=== PATIENT | male | born 1965 | race Caucasian/White ===

== ENCOUNTER 2024-07-06 13:21 | Inpatient (IN) | payer MEDICARE, MEDICAID ==
[~2024-07-06] VITALS: Ht 172.7 cm; Wt 83.1 kg
[2024-07-06] MEDS ORDERED: Glucagon Hydrochloride 1 MG SYR IV ONE (13:40)
[2024-07-06 13:42] VITALS: BP 86/40
[2024-07-06 14:05] LABS: BASO % 0.1 % (0.0-1.0); EOS % 0.1 % (1.0-4.0); HEMATOCRIT 37.8 % (42.0-52.0); MEAN CELL VOLUME 80.4 fl (80.0-94.0); MEAN CORPUSCULAR HGB 27.2 pg (27.0-31.0); MEAN CORPUSCULAR HGB CONC 33.9 g/dl (33.0-37.0); MEAN PLATELET VOLUME 10.5 fl (9.6-12.3); MONO # 1.1 10*3/uL (0.1-1.0); MONO % 10.8 % (3.0-9.0); NEUT % 79.7 % (47.0-73.0); PLATELET COUNT AUTOMATED 251 10*3/uL (130-400); RED CELL DISTRI WIDTH 16.1 % (0-14.5); WHITE BLOOD COUNT 10.1 10*3/uL (4.8-10.8)
[2024-07-06 14:13] LABS: BILIRUBIN Negative (Negative); BLOOD Negative (Negative); CLARITY Clear (Clear); COLOR Yellow (Yellow); GLUCOSE Negative (Negative); KETONE Negative (Negative); LEUKO ESTERASE Negative (Negative); NITRITE Negative (Negative); SPECIFIC GRAVITY 1.015 (1.001-1.030); UROBILINOGEN 0.2 E.U./dl (0.0-1.0)
[2024-07-06 14:24] LABS: BUN 97 mg/dl (9-23); CHLORIDE 90 mmol/L (98-107); POTASSIUM 2.5 mmol/L (3.4-5.1)
[2024-07-06 14:37] LABS: ETHYL ALCOHOL < 3.0 mg/dl (<3)
[2024-07-06 14:39] LABS: BACTERIA TRACE; EPITHELIAL CELLS 0-2; FINE GRANULAR CAST 0-2; RBC 0-2 rbc/hpf (0-2); WBC 0-2 wbc/hpf (0-5)
[2024-07-06 14:45] LABS: URINE AMPHETAMINES Negative (1000ng/ml); URINE BARBITURATES Negative (200ng/ml); URINE BENZODIAZEPINES Negative (200ng/ml); URINE CANNABINOIDS (THC) Negative (50ng/ml); URINE COCAINE Negative (300ng/ml); URINE METHADONE Negative (300ng/ml); URINE OPIATES Negative (300ng/ml); URINE PHENCYCLIDINE Negative (25ng/ml)
[2024-07-06] MEDS ORDERED: ASPIRIN ADULT L81 M1 PO (14:57)
[2024-07-06] MEDS ORDERED: ALDACTONE25 MG PO (14:57)
[2024-07-06] MEDS ORDERED: AUVELITY ER 451 EACH PO (14:58)
[2024-07-06] MEDS ORDERED: ATORVASTATIN CA20 M1 PO (14:58)
[2024-07-06] MEDS ORDERED: BUMETANIDE1 MG PO (14:58)
[2024-07-06] MEDS ORDERED: ENTRESTO 97 MG1 EACH PO (14:59)
[2024-07-06] MEDS ORDERED: METFORMIN HYDR500 MG PO (14:59)
[2024-07-06] MEDS ORDERED: METOPROLOL SUCC50 M1 PO (15:00)
[2024-07-06] MEDS ORDERED: OMEPRAZOLE MAGN20 MG PO (15:00)
[2024-07-06] MEDS ORDERED: ELIQUIS2.5 M1 PO (15:00)
[2024-07-06] MEDS ORDERED: SODIUM CHLORIDE 0.9% 1,000 ML IV ONE ×2 (15:35→16:35)
[2024-07-06 15:40] VITALS: BP 96/45
[2024-07-06] MEDS ORDERED: ACETAMINOPHEN 650 MG SUPP R PRN (16:20)
[2024-07-06] MEDS ORDERED: Magnesium Hydroxide 30 ML UDC PO PRN (16:20)
[2024-07-06] MEDS ORDERED: ACETAMINOPHEN 325 MG TAB PO PRN (16:20)
[2024-07-06] MEDS ORDERED: POTASSIUM CHLORIDE 20 MEQ TAB PO ONE (16:35)
[2024-07-06] MEDS ORDERED: DEXTROSE 10 % IN WATER 250 ML IV PRN (17:50)
[2024-07-06 18:00] VITALS: BP 96/65
[2024-07-06 19:58] VITALS: BP 83/57
[2024-07-06] MEDS ORDERED: APIXABAN 5 MG TAB PO SCH (22:00)
[2024-07-06] MEDS ORDERED: TEMAZEPAM 15 MG CAP PO PRN (22:00)
[2024-07-06] MEDS ORDERED: APIXABAN 2.5 MG TABLET PO SCH (22:00)
[2024-07-06] MEDS ORDERED: INSULIN LISPRO 1 UNIT/0.01 ML SQ SCH (22:00)
[2024-07-07] VITALS (7 sets, daily range): BP systolic 74–95; BP diastolic 40–66
[2024-07-07] MEDS ORDERED: Pantoprazole Sodium 40 MG TAB PO SCH (06:00)
[2024-07-07 06:13] LABS: BASO % 0.1 % (0.0-1.0); EOS % 0.2 % (1.0-4.0); HEMATOCRIT 37.4 % (42.0-52.0); MEAN CELL VOLUME 80.4 fl (80.0-94.0); MEAN CORPUSCULAR HGB 27.3 pg (27.0-31.0); MEAN PLATELET VOLUME 10.8 fl (9.6-12.3); MONO % 11.8 % (3.0-9.0); NEUT # 6.9 10*3/uL (2.3-7.9); PLATELET COUNT AUTOMATED 283 10*3/uL (130-400); RED BLOOD COUNT 4.65 10*6/uL (4.50-5.90); RED CELL DISTRI WIDTH 16.2 % (0-14.5); WHITE BLOOD COUNT 8.9 10*3/uL (4.8-10.8)
[2024-07-07 06:14] LABS: FREE T4 1.05 ng/dl (0.89-1.76); POTASSIUM 2.8 mmol/L (3.4-5.1)
[2024-07-07] MEDS ORDERED: POTASSIUM CHLORIDE 20 MEQ TAB PO ONE (06:40)
[2024-07-07] MEDS ORDERED: POTASSIUM PHOS IN 0.9 % NACL 250 ML IV ONE (06:55)
[2024-07-07] MEDS ORDERED: Phosphorus/Potassium 1.45 GM PACKET PO SCH (07:30)
[2024-07-07 08:11] LABS: VITAMIN D, 25-HYDROXY 6.5 ng/mL (30-100)
[2024-07-07] MEDS ORDERED: Clopidogrel Hydrogen Sulfate 75 MG TAB PO SCH (10:00)
[2024-07-07] MEDS ORDERED: MED. FROM HOME 1 EACH EA PO SCH (11:00)
[2024-07-07 11:49] LABS: POTASSIUM 3.4 mmol/L (3.4-5.1)
[2024-07-07] MEDS ORDERED: SODIUM CHLORIDE 0.9% 500 ML IV ONE (12:15)
[2024-07-07] MEDS ORDERED: Midodrine Hydrochloride 5 MG TAB PO SCH (17:50)
[2024-07-07] MEDS ORDERED: Mirtazapine 15 MG TAB PO SCH (21:00)
[2024-07-07] MEDS ORDERED: ARIPiprazole 5 MG TAB PO SCH (22:00)
[2024-07-08] VITALS: BP 90/50
[2024-07-08 05:24] LABS: CHLORIDE 105 mmol/L (98-107); POTASSIUM 3.1 mmol/L (3.4-5.1)
[2024-07-08 05:29] LABS: BUN 48 mg/dl (9-23)
[2024-07-08 06:21] LABS: BASO % 0.2 % (0.0-1.0); EOS # 0.1 10*3/uL (0.0-0.4); EOS % 0.8 % (1.0-4.0); HEMATOCRIT 35.7 % (42.0-52.0); MEAN CELL VOLUME 81.3 fl (80.0-94.0); MEAN CORPUSCULAR HGB 27.1 pg (27.0-31.0); MEAN CORPUSCULAR HGB CONC 33.3 g/dl (33.0-37.0); MEAN PLATELET VOLUME 10.1 fl (9.6-12.3); MONO # 1.2 10*3/uL (0.1-1.0); MONO % 10.8 % (3.0-9.0); NEUT # 8.3 10*3/uL (2.3-7.9); NEUT % 77.4 % (47.0-73.0); PLATELET COUNT AUTOMATED 299 10*3/uL (130-400); RED BLOOD COUNT 4.39 10*6/uL (4.50-5.90); RED CELL DISTRI WIDTH 16.6 % (0-14.5); WHITE BLOOD COUNT 10.7 10*3/uL (4.8-10.8)
[2024-07-08] MEDS ORDERED: POTASSIUM CHLORIDE 20 MEQ TAB PO ONE (06:55)
[2024-07-08 08:00] VITALS: BP 111/78
[2024-07-08] MEDS ORDERED: ATORVASTATIN CALCIUM 20 MG TAB PO SCH (10:00)
[2024-07-08 12:00] VITALS: BP 102/82
[2024-07-08] MEDS ORDERED: NYSTATIN 15 GM BOT T SCH (13:05)
[2024-07-08] MEDS ORDERED: REMERON15 M2 PO (14:16)
[2024-07-08] MEDS ORDERED: RESTORIL15 MG PO (14:16)
[2024-07-08 16:00] VITALS: BP 100/74
[2024-07-08] MEDS ORDERED: Midodrine Hydrochloride 5 MG TAB PO SCH (16:00)
[2024-07-08 20:00] VITALS: BP 107/63
[2024-07-08] MEDS ORDERED: METOPROLOL SUCCINATE XR 25 MG TAB PO SCH (22:00)
[2024-07-08] MEDS ORDERED: Loperamide Hydrochloride 2 MG CAP PO ONE (22:20)
[2024-07-09] VITALS: BP 105/76
[2024-07-09 06:09] LABS: BASO % 0.3 % (0.0-1.0); EOS # 0.1 10*3/uL (0.0-0.4); EOS % 0.6 % (1.0-4.0); HEMATOCRIT 36.6 % (42.0-52.0); MEAN CELL VOLUME 82.1 fl (80.0-94.0); MEAN CORPUSCULAR HGB 26.9 pg (27.0-31.0); MEAN CORPUSCULAR HGB CONC 32.8 g/dl (33.0-37.0); MEAN PLATELET VOLUME 9.9 fl (9.6-12.3); MONO # 1.4 10*3/uL (0.1-1.0); MONO % 10.2 % (3.0-9.0); NEUT # 10.5 10*3/uL (2.3-7.9); NEUT % 77.5 % (47.0-73.0); PLATELET COUNT AUTOMATED 322 10*3/uL (130-400); RED BLOOD COUNT 4.46 10*6/uL (4.50-5.90); RED CELL DISTRI WIDTH 16.8 % (0-14.5); WHITE BLOOD COUNT 13.6 10*3/uL (4.8-10.8)
[2024-07-09 06:51] LABS: CHLORIDE 107 mmol/L (98-107); POTASSIUM 3.5 mmol/L (3.4-5.1)
[2024-07-09 07:05] LABS: BUN 25 mg/dl (9-23)
[2024-07-09 08:00] VITALS: BP 94/70
[2024-07-09 12:00] VITALS: BP 104/68
[2024-07-09] MEDS ORDERED: hydrOXYzine pamoate 25 MG CAP PO ONE (14:50)
[2024-07-09] MEDS ORDERED: Nicotine 21 MG PATCH T SCH (15:05)
[2024-07-09 16:00] VITALS: BP 105/69; BP 90/72
[2024-07-09] MEDS ORDERED: MIDODRINE HCL5 M1 PO (16:39)
[2024-07-09] MEDS ORDERED: CLOPIDOGREL75 MG PO (16:39)
[2024-07-09] MEDS ORDERED: JARDIANCE10 MG PO (16:39)
[2024-07-09] MEDS ORDERED: METOPROLOL SUCC25 M2 PO (16:39)
[2024-07-09] MEDS ORDERED: ELIQUIS5 M1 PO (16:39)
[2024-07-09] MEDS ORDERED: ARIPIPRAZOLE5 MG PO (16:40)
[2024-07-09 20:00] VITALS: BP 116/64
[2024-07-10] MEDS ORDERED: EMPAGLIFLOZIN 10 MG TABLET PO SCH (10:00)
== END 2024-07-09 21:06 | DRG 917 ==
LOC: ED 13:21 → EDHOLD 16:15 → 3N 16:15 → ICCU 16:15 → 3N 07-09 20:40 → ICCU 07-09 20:49
PROVIDERS: Emergency Medicine; Student in an Organized Health Care Education/Training Program; ADMIT Internal Medicine; ATTEND Internal Medicine
DX: T45.0X2A Poisoning by antiallergic and antiemetic drugs, intentional self-harm, initial encounter (principal); E43 Unspecified severe protein-calorie malnutrition; G93.41 Metabolic encephalopathy; N17.0 Acute kidney failure with tubular necrosis; I50.23 Acute on chronic systolic (congestive) heart failure; I21.A1 Myocardial infarction type 2; E87.1 Hypo-osmolality and hyponatremia; I95.9 Hypotension, unspecified; E87.6 Hypokalemia; D64.9 Anemia, unspecified; E87.8 Other disorders of electrolyte and fluid balance, not elsewhere classified; E11.65 Type 2 diabetes mellitus with hyperglycemia; I11.0 Hypertensive heart disease with heart failure; E78.5 Hyperlipidemia, unspecified; F32.9 Major depressive disorder, single episode, unspecified; G40.909 Epilepsy, unspecified, not intractable, without status epilepticus; I25.10 Atherosclerotic heart disease of native coronary artery without angina pectoris; I25.5 Ischemic cardiomyopathy; Z95.5 Presence of coronary angioplasty implant and graft; Z20.822 Contact with and (suspected) exposure to COVID-19; Z95.0 Presence of cardiac pacemaker; Z81.8 Family history of other mental and behavioral disorders; Z82.49 Family history of ischemic heart disease and other diseases of the circulatory system; Z86.73 Personal history of transient ischemic attack (TIA), and cerebral infarction without residual deficits; Z88.0 Allergy status to penicillin; Z79.82 Long term (current) use of aspirin; Z79.899 Other long term (current) drug therapy; Z68.28 Body mass index [BMI] 28.0-28.9, adult; Y92.89 Other specified places as the place of occurrence of the external cause

== ENCOUNTER 2024-07-09 17:15 | Inpatient (IN) | payer MEDICARE, MEDICAID ==
[~2024-07-09] VITALS: Ht 170.1 cm; Wt 83.0 kg
[~2024-07-09 17:15] MED LIST: ALDACTONE25 MG PO; ARIPIPRAZOLE5 MG PO; ASPIRIN ADULT L81 M1 PO; ATORVASTATIN CA20 M1 PO; AUVELITY ER 451 EACH PO; BUMETANIDE1 MG PO; CLOPIDOGREL75 MG PO; ELIQUIS2.5 M1 PO; ELIQUIS5 M1 PO; ENTRESTO 97 MG1 EACH PO; JARDIANCE10 MG PO; METFORMIN HYDR500 MG PO; METOPROLOL SUCC25 M2 PO; METOPROLOL SUCC50 M1 PO; MIDODRINE HCL5 M1 PO; OMEPRAZOLE MAGN20 MG PO; REMERON15 M2 PO; RESTORIL15 MG PO
[2024-07-09 20:45] VITALS: BP 114/88
[2024-07-09] MEDS ORDERED: MG-AL HYDROXIDE/SIMETICONE 30 ML UDC PO PRN (23:00)
[2024-07-09] MEDS ORDERED: ACETAMINOPHEN 325 MG TAB PO PRN (23:00)
[2024-07-09] MEDS ORDERED: Magnesium Hydroxide 30 ML UDC PO PRN (23:00)
[2024-07-09] MEDS ORDERED: Ziprasidone Mesylate 20 MG VIAL IM PRN (23:05)
[2024-07-09] MEDS ORDERED: LORazepam 1 MG TAB PO PRN (23:05)
[2024-07-09] MEDS ORDERED: LORazepam 2 MG/ML VIAL IM PRN (23:05)
[2024-07-10 06:45] LABS: BASO % 0.3 % (0.0-1.0); EOS % 0.4 % (1.0-4.0); HEMATOCRIT 34.6 % (42.0-52.0); MEAN CELL VOLUME 82.6 fl (80.0-94.0); MEAN CORPUSCULAR HGB 26.7 pg (27.0-31.0); MEAN CORPUSCULAR HGB CONC 32.4 g/dl (33.0-37.0); MEAN PLATELET VOLUME 9.8 fl (9.6-12.3); MONO # 1.1 10*3/uL (0.1-1.0); MONO % 9.8 % (3.0-9.0); NEUT # 8.6 10*3/uL (2.3-7.9); NEUT % 78.3 % (47.0-73.0); PLATELET COUNT AUTOMATED 312 10*3/uL (130-400); RED BLOOD COUNT 4.19 10*6/uL (4.50-5.90); RED CELL DISTRI WIDTH 17.3 % (0-14.5)
[2024-07-10 06:47] LABS: ALKALINE PHOSPHATASE 71 U/L (46-116); BUN 21 mg/dl (9-23); CHLORIDE 107 mmol/L (98-107); CHOLESTEROL 94 mg/dL (<200); LDL CHOLESTEROL 46 mg/dL (9-159); POTASSIUM 3.6 mmol/L (3.4-5.1); SGPT/ALT 16 U/L (5-49); TOTAL PROTEIN 6.2 gm/dL (6.0-8.0); TRIGLYCERIDES 102 mg/dl (<150)
[2024-07-10] MEDS ORDERED: Midodrine Hydrochloride 5 MG TAB PO SCH (08:00)
[2024-07-10 08:09] VITALS: BP 101/78
[2024-07-10] MEDS ORDERED: CALCIUM (TUMS) 500MG PO SCH (09:00)
[2024-07-10] MEDS ORDERED: Menthol/Zinc Oxide 4 GM THIN T SCH (09:00)
[2024-07-10] MEDS ORDERED: OMEPRAZOLE 20 MG CAP PO SCH (10:00)
[2024-07-10] MEDS ORDERED: ASPIRIN, CHEWABLE 81 MG TAB PO SCH (10:00)
[2024-07-10] MEDS ORDERED: Clopidogrel Hydrogen Sulfate 75 MG TAB PO SCH (10:00)
[2024-07-10] MEDS ORDERED: EMPAGLIFLOZIN 10 MG TABLET PO SCH (10:00)
[2024-07-10] MEDS ORDERED: METOPROLOL SUCCINATE XR 25 MG TAB PO SCH (10:00)
[2024-07-10] MEDS ORDERED: Nicotine 21 MG PATCH T SCH (10:00)
[2024-07-10] MEDS ORDERED: BUMETANIDE 1 MG TAB PO SCH (10:00)
[2024-07-10] MEDS ORDERED: APIXABAN 5 MG TAB PO SCH ×2 (10:00)
[2024-07-10] MEDS ORDERED: SACUBITRIL/VALSARTAN 97 MG-103 MG TABLET PO SCH (10:00)
[2024-07-10] MEDS ORDERED: LORazepam 0.5 MG TAB PO SCH (13:00)
[2024-07-10] MEDS ORDERED: Water, Sterile 10 ML VIAL ONE (17:45)
[2024-07-10 20:00] VITALS: BP 103/51
[2024-07-10] MEDS ORDERED: Mirtazapine 15 MG TAB PO SCH (21:00)
[2024-07-10] MEDS ORDERED: ARIPiprazole 5 MG TAB PO SCH (21:00)
[2024-07-10] MEDS ORDERED: ATORVASTATIN CALCIUM 20 MG TAB PO SCH (22:00)
[2024-07-10] MEDS ORDERED: Albuterol Sulf/Ipratropium 3 ML VIAL NEB SCH (23:25)
[2024-07-11 06:48] LABS: BUN 22 mg/dl (9-23); CHLORIDE 108 mmol/L (98-107); POTASSIUM 4.1 mmol/L (3.4-5.1)
[2024-07-11 08:00] VITALS: BP 99/65
[2024-07-11] MEDS ORDERED: MED. FROM HOME 1 EACH EA PO SCH ×4 (09:00→21:00)
[2024-07-11] MEDS ORDERED: Cholecalciferol 5,000 IU CAP (125 MCG) PO SCH (09:00)
[2024-07-11 20:00] VITALS: BP 117/67
[2024-07-12 07:40] VITALS: BP 102/63
[2024-07-12 20:00] VITALS: BP 126/88
[2024-07-13 07:42] VITALS: BP 91/58
[2024-07-13 07:58] VITALS: BP 98/60
[2024-07-13] MEDS ORDERED: RAMELTEON 8 MG TAB PO PRN (08:45)
[2024-07-13] MEDS ORDERED: Albuterol Sulf/Ipratropium 3 ML VIAL NEB PRN (08:55)
[2024-07-13] MEDS ORDERED: Rivastigmine Tartrate 4.6 MG/24 HR PATCH T SCH (09:00)
[2024-07-13 19:10] VITALS: BP 119/70
[2024-07-14 07:55] VITALS: BP 114/87
[2024-07-14 20:00] VITALS: BP 97/53
[2024-07-15 08:00] VITALS: BP 131/68
[2024-07-15] MEDS ORDERED: VITAMIN D3125 MC1 PO (11:19)
[2024-07-15] MEDS ORDERED: MIRTAZAPINE15 M2 PO (11:19)
[2024-07-15] MEDS ORDERED: RIVASTIGMINE1 EACH T (11:19)
[2024-07-15] MEDS ORDERED: RAMELTEON8 MG PO (11:19)
[2024-07-15] MEDS ORDERED: ARIPIPRAZOLE5 MG PO (11:19)
[2024-07-15] MEDS ORDERED: HOMEMED PO (11:19)
[2024-07-15] MEDS ORDERED: MIDODRINE HCL5 M1 PO (12:01)
[2024-07-15] MEDS ORDERED: METOPROLOL SUCC25 M2 PO (12:01)
[2024-07-15] MEDS ORDERED: JARDIANCE10 MG PO (12:01)
[2024-07-15] MEDS ORDERED: NICODERM CQ1 EAC2 T (12:30)
== END 2024-07-15 18:40 | disposition home or self-care (01) | DRG 885 ==
LOC: 3N 17:15
PROVIDERS: ADMIT Psychiatry & Neurology Psychiatry; ATTEND Psychiatry & Neurology Psychiatry
PROC: GZHZZZZ Group Psychotherapy (ICD-10-PCS; principal; 2024-07-12)
PROC: GZ56ZZZ Individual Psychotherapy, Supportive (ICD-10-PCS; 2024-07-12)
DX: F33.2 Major depressive disorder, recurrent severe without psychotic features (principal); E43 Unspecified severe protein-calorie malnutrition; I11.0 Hypertensive heart disease with heart failure; G93.41 Metabolic encephalopathy; I50.22 Chronic systolic (congestive) heart failure; F02.83 Dementia in other diseases classified elsewhere, unspecified severity, with mood disturbance; F17.210 Nicotine dependence, cigarettes, uncomplicated; I95.9 Hypotension, unspecified; E11.9 Type 2 diabetes mellitus without complications; G47.00 Insomnia, unspecified; E78.5 Hyperlipidemia, unspecified; G30.9 Alzheimer's disease, unspecified; E83.51 Hypocalcemia; T50.991A Poisoning by other drugs, medicaments and biological substances, accidental (unintentional), initial encounter; Z86.73 Personal history of transient ischemic attack (TIA), and cerebral infarction without residual deficits; Z81.8 Family history of other mental and behavioral disorders; Z82.49 Family history of ischemic heart disease and other diseases of the circulatory system; Z88.0 Allergy status to penicillin; I25.2 Old myocardial infarction; Z95.1 Presence of aortocoronary bypass graft; Z95.0 Presence of cardiac pacemaker; Z68.27 Body mass index [BMI] 27.0-27.9, adult; Z79.899 Other long term (current) drug therapy; Z79.01 Long term (current) use of anticoagulants; Y92.89 Other specified places as the place of occurrence of the external cause